=== PATIENT | female | born 1970 | race American Indian/Alaskan Native ===

== ENCOUNTER 2018-02-09 10:58 | Outpatient (CLI) | payer BC ==
--- NOTE | 2018-02-09 12:42 | Nuclear Medicine Report ---
HIDA WITHOUT CCK INDICATION: Abdominal pain. COMPARISON: None similar at this institution. FINDINGS: Dynamic right upper quadrant imaging performed in the anterior projection over 60 minutes following uneventful intravenous administration of 5 mCi of Technetium 99m Choletec. Prompt and homogenous hepatic radiotracer uptake with subsequent washout seen with gallbladder activity noted at 10 minutes and bowel activity seen at 20 minutes. Liver may be slightly prominent craniocaudal. No CCK given due to the current nonavailability with gallbladder ejection fraction not calculated. CONCLUSION: No evidence of cholecystitis with few other findings, as above. Please correlate. Thank you for the opportunity to participate in this patient's care.
== END 2018-02-09 10:59 | disposition home or self-care (01) ==
LOC: NM 10:58
PROVIDERS: ATTEND Internal Medicine Gastroenterology
DX: R10.9 Unspecified abdominal pain (principal); E11.9 Type 2 diabetes mellitus without complications; K21.9 Gastro-esophageal reflux disease without esophagitis; I10 Essential (primary) hypertension
CPT/HCPCS: 78226; A9537